=== PATIENT | female | born 1960 | race Caucasian/White ===

== ENCOUNTER 2019-07-03 04:55 | Inpatient (IN) ==
[2019-07-03] MEDS ORDERED: Isovue-370 500 ML BOTTLE IVP ONE ×2 (05:45→06:22)
[2019-07-03 05:46] LABS: Red Cell Distribution Width 20.3 % (11.5-14.5)
[2019-07-03 05:47] LABS: Basophils % 0.3 %; Eosinophils # 0.2 K/mcL (0.0-0.6); Eosinophils % 1.6 %; Lymphocytes # 1.5 K/mcL (0.6-4.6); Lymphocytes % 12.8 %; Mean Corpuscular HGB Conc 25.7 g/dL (31.6-35.5); Mean Corpuscular Hemoglobin 18.7 pg (28.0-33.3); Mean Corpuscular Volume 72.9 fL (83.0-100.0); Mean Platelet Volume 10.7 fL (9.4-12.4); Monocytes # 0.9 K/mcL (0.0-1.3); Monocytes % 8.1 %; Neutrophils # 8.8 K/mcL (1.6-8.9); Nucleated Red Blood Cells 0.9 /100 WBC (0); Platelet Count 571 K/mcL (140-400); Red Blood Count 2.03 M/mcL (3.82-4.97); Segmented Neutrophils % 76.2 %; White Blood Count 11.6 K/mcL (4.3-11.1)
[2019-07-03 06:07] LABS: Alanine Aminotransferase 12 Units/L (7-52); Albumin 2.6 g/dL (3.5-5.7); Albumin/Globulin Ratio 0.6 (1.1-2.2); Alkaline Phosphatase 114 Units/L (34-104); Aspartate Amino Transferase 31 Units/L (13-39); BUN/Creatinine Ratio 20 (6-26); Bilirubin,Total 0.6 mg/dL (0.3-1.0); Blood Urea Nitrogen 13 mg/dL (6-20); Carbon Dioxide 22 mEq/L (23-29); Chloride 108 mEq/L (98-107); Globulin 4.3 g/dL (2.4-3.5); Glucose 130 mg/dL (70-105); Osmolality,Calculated 290 (280-300); Potassium 3.6 mEq/L (3.5-5.1); Sodium 139 mEq/L (136-145); Total Protein 6.9 g/dL (6.4-8.9); Troponin I < 0.03 ng/mL (< 0.04); eGFR For African Americans > 60 (> 60); eGFR For Non-African Americans > 60 (> 60)
[2019-07-03 06:08] LABS: Hematocrit 14.8 % (35.3-44.9); Hemoglobin 3.8 g/dL (11.5-15.4)
[2019-07-03 06:09] LABS: Hypochromasia Present (Not Present); Platelet Estimate Increased (Normal)
[2019-07-03 06:10] LABS: Anisocytosis 1+ (Not Present); Polychromasia 1+ (Not Present)
[2019-07-03] MEDS ORDERED: tiZANidine 4 MG TABLET PO ONE (06:18)
[2019-07-03] MEDS ORDERED: 0.9 % Sodium Chloride 1,000 ML IVC ONE (06:20)
[2019-07-03 07:33] LABS: Immature Platelets 4.6 % (1.1-6.1); Mean Corpuscular Hemoglobin 18.8 pg (28.0-33.3); Mean Corpuscular Volume 69.8 fL (83.0-100.0); Mean Platelet Volume 10.7 fL (9.4-12.4); Nucleated Red Blood Cells 0.5 /100 WBC (0); Platelet Count 537 K/mcL (140-400); Red Blood Count 2.02 M/mcL (3.82-4.97); Red Cell Distribution Width 20.1 % (11.5-14.5); White Blood Count 11.7 K/mcL (4.3-11.1)
[2019-07-03 07:41] LABS: INR 1.3; Prothrombin Time 15.3 Seconds (9.4-12.1)
[2019-07-03 07:43] LABS: Activated Partial Thrombo Time 23.9 Seconds (26.0-36.0)
[2019-07-03 07:47] LABS: Hemoglobin 3.8 g/dL (11.5-15.4)
[2019-07-03 07:48] LABS: Hematocrit 14.1 % (35.3-44.9)
[2019-07-03 08:33] LABS: Lymphocytes # 2.6 K/mcL (0.6-4.6); Monocytes # 0.5 K/mcL (0.0-1.3); Neutrophils # 8.7 K/mcL (1.6-8.9); Platelet Estimate Increased (Normal)
[2019-07-03 08:34] LABS: Anisocytosis 2+ (Not Present); Hypochromasia Present (Not Present); Microcytosis Present (Not Present); Poikilocytosis 1+ (Not Present); Polychromasia 1+ (Not Present)
[2019-07-03] MEDS ORDERED: 0.9 % Sodium Chloride 250 ML ONE ×3 (08:46→21:59)
[2019-07-03] MEDS ORDERED: Naloxone 0.4 MG/ML INJ IVP PRN (09:38)
[2019-07-03] MEDS ORDERED: *HR* Heparin 5,000 UNIT/ML VIAL SQ SCH (14:00)
[2019-07-03] MEDS ORDERED: SODIUM CHLORIDE/NAHCO3/KCL/PEG 4,000 ML SOLN.RECON PO ONE (17:00)
[2019-07-03 17:59] LABS: Basophils # 0.1 K/mcL (0.0-0.2); Basophils % 0.8 %; Eosinophils # 0.4 K/mcL (0.0-0.6); Hematocrit 20.6 % (35.3-44.9); Hemoglobin 6.1 g/dL (11.5-15.4); Lymphocytes # 1.7 K/mcL (0.6-4.6); Lymphocytes % 14.6 %; Mean Corpuscular HGB Conc 29.6 g/dL (31.6-35.5); Mean Corpuscular Hemoglobin 21.9 pg (28.0-33.3); Mean Corpuscular Volume 74.1 fL (83.0-100.0); Mean Platelet Volume 10.6 fL (9.4-12.4); Monocytes # 0.9 K/mcL (0.0-1.3); Monocytes % 7.4 %; Neutrophils # 8.5 K/mcL (1.6-8.9); Platelet Count 518 K/mcL (140-400); Red Blood Count 2.78 M/mcL (3.82-4.97); Red Cell Distribution Width 20.5 % (11.5-14.5); Segmented Neutrophils % 73.2 %; White Blood Count 11.6 K/mcL (4.3-11.1)
[2019-07-03] MEDS: *HR* Enoxaparin 150 MG/ML SYRINGE SQ SCH (18:19)
[2019-07-04 02:32] LABS: Basophils # 0.1 K/mcL (0.0-0.2); Basophils % 0.9 %; Eosinophils # 0.4 K/mcL (0.0-0.6); Eosinophils % 3.7 %; Hematocrit 22.3 % (35.3-44.9); Hemoglobin 6.6 g/dL (11.5-15.4); Lymphocytes % 16.8 %; Mean Corpuscular HGB Conc 29.6 g/dL (31.6-35.5); Mean Corpuscular Hemoglobin 22.8 pg (28.0-33.3); Mean Corpuscular Volume 77.2 fL (83.0-100.0); Mean Platelet Volume 10.9 fL (9.4-12.4); Monocytes % 8.8 %; Neutrophils # 8.1 K/mcL (1.6-8.9); Platelet Count 468 K/mcL (140-400); Red Blood Count 2.89 M/mcL (3.82-4.97); Red Cell Distribution Width 19.5 % (11.5-14.5); Segmented Neutrophils % 68.8 %; White Blood Count 11.8 K/mcL (4.3-11.1)
[2019-07-04 02:53] LABS: BUN/Creatinine Ratio 24 (6-26); Blood Urea Nitrogen 12 mg/dL (6-20); Calcium 7.9 mg/dL (8.6-10.3); Carbon Dioxide 22 mEq/L (23-29); Chloride 109 mEq/L (98-107); Glucose 89 mg/dL (70-105); Osmolality,Calculated 283 (280-300); Potassium 3.3 mEq/L (3.5-5.1); Sodium 137 mEq/L (136-145); eGFR For African Americans > 60 (> 60); eGFR For Non-African Americans > 60 (> 60)
[2019-07-04 02:54] LABS: % Iron Saturation 16 % (15-50); Iron 56 mcg/dL (50-170); Transferrin 252 mg/dL (203-362)
[2019-07-04] MEDS ORDERED: 0.9 % Sodium Chloride 250 ML ONE (02:56)
[2019-07-04] MEDS: *HR* Enoxaparin 150 MG/ML SYRINGE SQ SCH ×2 (05:07→17:12)
[2019-07-04] MEDS ORDERED: Propofol 500 MG/50 ML INFUS..BTL ONE (07:15)
[2019-07-04] MEDS ORDERED: Lidocaine -MPF 2% 2 ML VIAL ONE (07:15)
[2019-07-04 07:32] LABS: Hematocrit 23.9 % (35.3-44.9); Hemoglobin 7.4 g/dL (11.5-15.4)
[2019-07-04] MEDS ORDERED: EPHEDrine 50 MG/ML VIAL ONE (10:03)
[2019-07-04] MEDS ORDERED: *HR* PHENYLEPHRINE 1,000 MCG/10 ML SYRINGE IVP ONE (10:03)
[2019-07-04] MEDS: Venlafaxine XR (24 HR) 75 MG CAP.ER.24H PO SCH (11:06)
[2019-07-04] MEDS: ARIPiprazole 5 MG TABLET PO SCH (11:07)
[2019-07-04] MEDS: FLUoxetine 20 MG CAPSULE PO SCH (11:08)
[2019-07-04] MEDS: tiZANidine 4 MG TABLET PO PRN ×2 (11:12→20:05)
[2019-07-04] MEDS ORDERED: Iron Sucrose Complex 400 MG in 0.9 % Sodium Chloride 250 ML IVPB ONE (11:59)
[2019-07-04 17:46] LABS: Hematocrit 24.6 % (35.3-44.9); Hemoglobin 7.1 g/dL (11.5-15.4)
[2019-07-04] MEDS: Apixaban 5 MG TABLET PO SCH (20:02)
[2019-07-04 21:44] LABS: Hemoglobin 7.1 g/dL (11.5-15.4)
[2019-07-05] MEDS: tiZANidine 4 MG TABLET PO PRN ×2 (03:22→16:14)
[2019-07-05 07:24] LABS: Basophils # 0.1 K/mcL (0.0-0.2); Eosinophils # 0.4 K/mcL (0.0-0.6); Eosinophils % 4.2 %; Hematocrit 23.6 % (35.3-44.9); Hemoglobin 6.9 g/dL (11.5-15.4); Immature Granulocytes % 1.3 % (0-4); Lymphocytes # 1.7 K/mcL (0.6-4.6); Lymphocytes % 16.5 %; Mean Corpuscular HGB Conc 29.2 g/dL (31.6-35.5); Mean Corpuscular Hemoglobin 23.5 pg (28.0-33.3); Mean Corpuscular Volume 80.5 fL (83.0-100.0); Mean Platelet Volume 11.2 fL (9.4-12.4); Monocytes % 9.1 %; Neutrophils # 7.1 K/mcL (1.6-8.9); Nucleated Red Blood Cells 0.4 /100 WBC (0); Platelet Count 419 K/mcL (140-400); Red Blood Count 2.93 M/mcL (3.82-4.97); Red Cell Distribution Width 20.6 % (11.5-14.5); Segmented Neutrophils % 67.9 %; White Blood Count 10.4 K/mcL (4.3-11.1)
[2019-07-05 07:48] LABS: BUN/Creatinine Ratio 38 (6-26); Blood Urea Nitrogen 18 mg/dL (6-20); Calcium 7.7 mg/dL (8.6-10.3); Carbon Dioxide 23 mEq/L (23-29); Chloride 107 mEq/L (98-107); Glucose 88 mg/dL (70-105); Osmolality,Calculated 285 (280-300); Potassium 3.8 mEq/L (3.5-5.1); Sodium 137 mEq/L (136-145); eGFR For African Americans > 60 (> 60); eGFR For Non-African Americans > 60 (> 60)
[2019-07-05] MEDS: FLUoxetine 20 MG CAPSULE PO SCH (09:59)
[2019-07-05] MEDS: Venlafaxine XR (24 HR) 75 MG CAP.ER.24H PO SCH (10:00)
[2019-07-05] MEDS: ARIPiprazole 5 MG TABLET PO SCH (10:00)
[2019-07-05] MEDS: Apixaban 5 MG TABLET PO SCH ×2 (10:00→21:35)
[2019-07-05] MEDS ORDERED: 0.9 % Sodium Chloride 250 ML IVC SCH (10:30)
[2019-07-05] MEDS ORDERED: Iron Sucrose Complex 400 MG in 0.9 % Sodium Chloride 250 ML IVPB ONE (13:25)
[2019-07-05 19:37] LABS: Hematocrit 26.8 % (35.3-44.9); Hemoglobin 7.8 g/dL (11.5-15.4)
[2019-07-06 01:24] LABS: Basophils # 0.1 K/mcL (0.0-0.2); Basophils % 0.6 %; Eosinophils # 0.4 K/mcL (0.0-0.6); Hematocrit 31.3 % (35.3-44.9); Hemoglobin 9.3 g/dL (11.5-15.4); Immature Granulocytes % 1.2 % (0-4); Lymphocytes # 1.8 K/mcL (0.6-4.6); Lymphocytes % 14.1 %; Mean Corpuscular HGB Conc 29.7 g/dL (31.6-35.5); Mean Corpuscular Volume 80.9 fL (83.0-100.0); Mean Platelet Volume 10.8 fL (9.4-12.4); Monocytes # 0.9 K/mcL (0.0-1.3); Neutrophils # 9.6 K/mcL (1.6-8.9); Nucleated Red Blood Cells 0.6 /100 WBC (0); Platelet Count 231 K/mcL (140-400); Red Blood Count 3.87 M/mcL (3.82-4.97); Segmented Neutrophils % 74.1 %; White Blood Count 12.9 K/mcL (4.3-11.1)
[2019-07-06 02:00] LABS: Platelet Estimate Normal (Normal)
[2019-07-06 02:11] LABS: BUN/Creatinine Ratio 47 (6-26); Blood Urea Nitrogen 26 mg/dL (6-20); Calcium 7.8 mg/dL (8.6-10.3); Carbon Dioxide 18 mEq/L (23-29); Chloride 108 mEq/L (98-107); Glucose 70 mg/dL (70-105); Osmolality,Calculated 283 (280-300); Potassium 4.9 mEq/L (3.5-5.1); Sodium 135 mEq/L (136-145); eGFR For African Americans > 60 (> 60); eGFR For Non-African Americans > 60 (> 60)
[2019-07-06] MEDS: tiZANidine 4 MG TABLET PO PRN ×2 (04:22→20:36)
[2019-07-06] MEDS: Apixaban 5 MG TABLET PO SCH ×2 (07:51→20:36)
[2019-07-06] MEDS: ARIPiprazole 5 MG TABLET PO SCH (07:52)
[2019-07-06] MEDS: FLUoxetine 20 MG CAPSULE PO SCH (07:52)
[2019-07-06] MEDS: Venlafaxine XR (24 HR) 75 MG CAP.ER.24H PO SCH (07:52)
[2019-07-06 16:40] LABS: Hematocrit 27.6 % (35.3-44.9); Hemoglobin 8.2 g/dL (11.5-15.4)
[2019-07-07 07:28] LABS: Basophils % 0.8 %; Hematocrit 27.7 % (35.3-44.9)
[2019-07-07 07:30] LABS: Basophils # 0.1 K/mcL (0.0-0.2); Eosinophils # 0.5 K/mcL (0.0-0.6); Eosinophils % 5.4 %; Hemoglobin 8.3 g/dL (11.5-15.4); Immature Granulocytes % 1.8 % (0-4); Lymphocytes # 1.5 K/mcL (0.6-4.6); Lymphocytes % 17.5 %; Mean Corpuscular Hemoglobin 23.9 pg (28.0-33.3); Mean Corpuscular Volume 79.8 fL (83.0-100.0); Mean Platelet Volume 10.5 fL (9.4-12.4); Monocytes # 0.8 K/mcL (0.0-1.3); Monocytes % 9.6 %; Neutrophils # 5.5 K/mcL (1.6-8.9); Nucleated Red Blood Cells 0.2 /100 WBC (0); Platelet Count 422 K/mcL (140-400); Red Blood Count 3.47 M/mcL (3.82-4.97); Red Cell Distribution Width 23.7 % (11.5-14.5); Segmented Neutrophils % 64.9 %; White Blood Count 8.4 K/mcL (4.3-11.1)
[2019-07-07 08:10] LABS: Anisocytosis 1+ (Not Present); Microcytosis Present (Not Present)
[2019-07-07] MEDS: FLUoxetine 20 MG CAPSULE PO SCH (09:19)
[2019-07-07] MEDS: Venlafaxine XR (24 HR) 75 MG CAP.ER.24H PO SCH (09:19)
[2019-07-07] MEDS: ARIPiprazole 5 MG TABLET PO SCH (09:19)
[2019-07-07] MEDS: Apixaban 5 MG TABLET PO SCH (09:20)
[2019-07-07] MEDS: tiZANidine 4 MG TABLET PO PRN ×2 (09:28→15:45)
[2019-07-07 15:25] VITALS: BP 130/68
== END 2019-07-07 16:56 | DRG 811 ==
LOC: EMEROOARM 04:55 → ICNU 04:55 → 2NNU 16:57 → SUATTDRO 16:58 → 2ANU 07-07 11:45
PROVIDERS: ADMIT Internal Medicine; ATTEND Internal Medicine

== ENCOUNTER 2020-06-09 00:27 | Observation (INO) ==
[2020-06-09] MEDS ORDERED: Isovue-370 500 ML BOTTLE IVP ONE (00:39)
[2020-06-09 01:31] LABS: Basophils # 0.1 K/mcL (0.0-0.2); Basophils % 1.4 %; Eosinophils # 0.3 K/mcL (0.0-0.6); Eosinophils % 4.6 %; Hematocrit 41.7 % (35.3-44.9); Hemoglobin 13.5 g/dL (11.5-15.4); Immature Granulocytes % 0.2 % (0-4); Lymphocytes # 2.1 K/mcL (0.6-4.6); Lymphocytes % 37.4 %; Mean Corpuscular HGB Conc 32.4 g/dL (31.6-35.5); Mean Corpuscular Hemoglobin 31.6 pg (28.0-33.3); Mean Corpuscular Volume 97.7 fL (83.0-100.0); Mean Platelet Volume 10.7 fL (9.4-12.4); Monocytes # 0.5 K/mcL (0.0-1.3); Monocytes % 8.7 %; Neutrophils # 2.7 K/mcL (1.6-8.9); Platelet Count 277 K/mcL (140-400); Red Blood Count 4.27 M/mcL (3.82-4.97); Red Cell Distribution Width 15.2 % (11.5-14.5); Segmented Neutrophils % 47.7 %; White Blood Count 5.6 K/mcL (4.3-11.1)
[2020-06-09 01:46] LABS: Adenovirus Not Detected (Not Detect); Bordetella Pertussis Not Detected (Not Detect); Chlamydophila pneumoniae Not Detected (Not Detect); Coronavirus 229E Not Detected (Not Detect); Coronavirus HKU1 Not Detected (Not Detect); Coronavirus NL63 Not Detected (Not Detect); Coronavirus OC43 Not Detected (Not Detect); Human Metapneumovirus Not Detected (Not Detect); Human Rhinovirus/Enterovirus Not Detected (Not Detect); Influenza A Subtype 2009 H1 Not Detected (Not Detect); Influenza B Not Detected (Not Detect); Mycoplasma pneumoniae Not Detected (Not Detect); Parainfluenza Virus 1 Not Detected (Not Detect); Parainfluenza Virus 2 Not Detected (Not Detect); Parainfluenza Virus 3 Not Detected (Not Detect); Parainfluenza Virus 4 Not Detected (Not Detect); Respiratory Syncytial Virus Not Detected (Not Detect); SARS-CoV-2 Not Detected (Not Detect)
[2020-06-09 01:52] LABS: BUN/Creatinine Ratio 21 (6-26); Blood Urea Nitrogen 17 mg/dL (6-20); Carbon Dioxide 29 mEq/L (23-29); Chloride 105 mEq/L (98-107); Potassium 4.5 mEq/L (3.5-5.1); Sodium 140 mEq/L (136-145)
[2020-06-09 01:53] LABS: Glucose 92 mg/dL (70-105); Osmolality,Calculated 291 (280-300); Troponin I < 0.03 ng/mL (< 0.04); eGFR For African Americans > 60 (> 60); eGFR For Non-African Americans > 60 (> 60)
[2020-06-09] MEDS ORDERED: Aspirin 81 MG TAB.CHEW PO STA (03:50)
[2020-06-09] MEDS ORDERED: Naloxone 0.4 MG/ML INJ IVP PRN (03:50)
[2020-06-09] MEDS ORDERED: Nitroglycerin 0.4 MG TAB.SUBL SL PRN (04:02)
[2020-06-09] MEDS ORDERED: Perflutren Lipid Microsphere 1.3 ML in 0.9 % Sodium Chloride 8.7 ML IVP PRN (04:03)
[2020-06-09 04:40] LABS: Thyroid Stimulating Hormone 39.583 mcIU/mL (0.340-5.600)
[2020-06-09] MEDS ORDERED: Nystatin Ointment 15 GM TUBE TP PRN (05:41)
[2020-06-09] MEDS ORDERED: hydrOXYzine pamoate 25 MG CAPSULE PO PRN (05:41)
[2020-06-09] MEDS: FLUoxetine 20 MG CAPSULE PO SCH (08:15)
[2020-06-09] MEDS: Apixaban 5 MG TABLET PO SCH ×2 (08:15→21:27)
[2020-06-09] MEDS: Furosemide 20 MG TABLET PO SCH (08:15)
[2020-06-09] MEDS: polyethylene glycoL 3350 17 GM POWD.PACK PO SCH (08:16)
[2020-06-09] MEDS: Cyanocobalamin (B-12) 1,000 MCG TABLET PO SCH (08:16)
[2020-06-09] MEDS: Nystatin Cream 15 GM TUBE TP SCH ×2 (09:10→21:28)
[2020-06-09] MEDS ORDERED: Regadenoson 0.4 MG/5 ML SYRINGE IVP ONE (10:10)
[2020-06-09] MEDS: *HR* HYDROcodone/Acet 10/325 mg TABLET PO PRN ×2 (12:29→23:08)
[2020-06-09] MEDS: tiZANidine 4 MG TABLET PO SCH ×2 (14:56→21:27)
[2020-06-09] MEDS ORDERED: Melatonin 3 MG TABLET PO SCH (21:00)
[2020-06-09] MEDS ORDERED: traZODone 50 MG TABLET PO SCH (21:00)
[2020-06-10] MEDS: FLUoxetine 20 MG CAPSULE PO SCH (08:57)
[2020-06-10] MEDS: Cyanocobalamin (B-12) 1,000 MCG TABLET PO SCH (08:58)
[2020-06-10] MEDS: Furosemide 20 MG TABLET PO SCH (08:59)
[2020-06-10] MEDS: Apixaban 5 MG TABLET PO SCH (08:59)
[2020-06-10] MEDS: polyethylene glycoL 3350 17 GM POWD.PACK PO SCH (09:00)
[2020-06-10] MEDS: Nystatin Cream 15 GM TUBE TP SCH (09:00)
[2020-06-10] MEDS: tiZANidine 4 MG TABLET PO SCH ×2 (09:00→15:10)
[2020-06-10] MEDS: *HR* HYDROcodone/Acet 10/325 mg TABLET PO PRN ×2 (09:02→15:10)
[2020-06-10 09:56] VITALS: BP 138/72
[2020-06-10] MEDS ORDERED: Levothyroxine 25 MCG TABLET PO SCH (11:45)
== END 2020-06-10 16:11 ==
LOC: EMEROOARM 00:27 → 3BNU 00:27 → SUATTDRO 03:56 → 3BNU 04:29
PROVIDERS: ADMIT Internal Medicine; ATTEND Internal Medicine